=== PATIENT | female | born 1965 | race Two or more races ===

== ENCOUNTER 2018-03-07 08:01 | Outpatient (CLI) | payer OTHER | END 2018-03-07 08:33 | disposition home or self-care (01) | LOC: LAB 08:01 | DX: N92.5 Other specified irregular menstruation (principal); N94.0 Mittelschmerz; N95.1 Menopausal and female climacteric states; R68.82 Decreased libido; E88.81 Metabolic syndrome and other insulin resistance; I10 Essential (primary) hypertension; K85.90 Acute pancreatitis without necrosis or infection, unspecified ==

== ENCOUNTER 2018-03-25 14:25 | Outpatient (CLI) | payer OTHER | END 2018-03-25 15:45 | disposition home or self-care (01) | LOC: NUCLEAR 14:25 | DX: M81.0 Age-related osteoporosis without current pathological fracture (principal); Z78.0 Asymptomatic menopausal state; Z78.9 Other specified health status; E55.9 Vitamin D deficiency, unspecified; N95.1 Menopausal and female climacteric states; Z80.3 Family history of malignant neoplasm of breast; R92.2 Inconclusive mammogram ==

== ENCOUNTER 2020-02-05 08:45 | Outpatient (CLI) | payer OTHER | END 2020-02-07 06:25 | disposition home or self-care (01) | LOC: MRI 08:45 | DX: M46.42 Discitis, unspecified, cervical region (principal) | CPT/HCPCS: 72141 ==

== ENCOUNTER 2020-02-09 09:06 | Outpatient (CLI) | payer OTHER | END 2020-02-09 09:15 | disposition home or self-care (01) | LOC: LAB 09:06 | DX: D69.49 Other primary thrombocytopenia (principal) ==

== ENCOUNTER 2020-02-15 12:43 | Outpatient (CLI) | payer OTHER | END 2020-02-15 13:40 | disposition home or self-care (01) | LOC: NUCLEAR 12:43 | PROVIDERS: ATTEND Internal Medicine Hematology & Oncology | DX: D69.49 Other primary thrombocytopenia (principal) | CPT/HCPCS: 78215; A9541 ==

== ENCOUNTER 2022-04-23 09:47 | Outpatient (CLI) | payer OTHER | END 2022-04-23 09:49 | disposition home or self-care (01) | LOC: SONOGRAMA 09:47 | PROVIDERS: ATTEND Internal Medicine | DX: K76.0 Fatty (change of) liver, not elsewhere classified (principal) ==

== ENCOUNTER 2023-07-26 07:16 | Outpatient (CLI) | payer OTHER | END 2023-07-26 07:32 | disposition home or self-care (01) | LOC: MAMO-SONO 07:16 | PROVIDERS: ATTEND Obstetrics & Gynecology Gynecology | DX: Z12.31 Encounter for screening mammogram for malignant neoplasm of breast (principal); N60.19 Diffuse cystic mastopathy of unspecified breast; N64.4 Mastodynia; N63.0 Unspecified lump in unspecified breast; R10.11 Right upper quadrant pain ==

== ENCOUNTER → 2023-07-29 13:01 | Outpatient (CLI) | payer OTHER | END | disposition home or self-care (01) | LOC: NUCLEAR 13:01 | PROVIDERS: ATTEND Obstetrics & Gynecology Gynecology | DX: M81.0 Age-related osteoporosis without current pathological fracture (principal); M85.80 Other specified disorders of bone density and structure, unspecified site ==

== ENCOUNTER 2024-06-21 10:08 | Outpatient (CLI) | payer OTHER | END 2024-06-21 10:20 | disposition home or self-care (01) | LOC: RAD 10:08 | PROVIDERS: ATTEND Orthopaedic Surgery | DX: M25.551 Pain in right hip (principal); M25.552 Pain in left hip ==

== ENCOUNTER 2025-01-24 17:46 | Emergency (ER) | payer OTHER ==
[~2025-01-24] VITALS: Ht 167.6 cm; Wt 59.0 kg
[2025-01-24 18:52] VITALS: BP 131/73; O2SAT 100
[2025-01-24] MEDS ORDERED: CEFTRIAXONE SODIUM 1,000 MG VIAL IM STA (19:18)
[2025-01-24] MEDS ORDERED: LIDOCAINE HCL 1% 10ML VIAL ONE (19:20)
[2025-01-24] MEDS ORDERED: CEFTRIAXONE SODIUM 1,000 MG VIAL ONE (19:20)
== END 2025-01-24 20:32 | disposition home or self-care (01) ==
LOC: ER 18:47
DX: S80.212A Abrasion, left knee, initial encounter (principal); W19.XXXA Unspecified fall, initial encounter; Y93.89 Activity, other specified; Y92.89 Other specified places as the place of occurrence of the external cause; Y99.9 Unspecified external cause status